=== PATIENT | female | born 2005 | race African-American/Black ===

== ENCOUNTER 2023-06-07 08:16 | Emergency (ER) | payer BC ==
[2023-06-07] MEDS ORDERED: Ondansetron 4 MG/2 ML SDV IVPUSH ONE (08:35)
[2023-06-07] MEDS ORDERED: Sodium Chloride 0.9% 1,000 ML IV SCH (08:45)
[2023-06-07] MEDS ORDERED: Ketorolac 30 MG/ML SDV IVPUSH ONE (08:59)
[2023-06-07] MEDS ORDERED: Prochlorperazine 10 MG/2 ML SDV IVPUSH ONE (09:47)
[2023-06-07] MEDS ORDERED: diphenhydrAMINE 50 MG/ML SDV IVPUSH ONE (09:47)
[2023-06-07] MEDS ORDERED: Sodium Chloride 0.9% 1,000 ML IV ONE (10:00)
== END 2023-06-07 12:00 | disposition home or self-care (01) ==
LOC: FB.ED 08:16
DX: A05.9 Bacterial foodborne intoxication, unspecified (principal); K52.9 Noninfective gastroenteritis and colitis, unspecified; Z88.1 Allergy status to other antibiotic agents; Z88.0 Allergy status to penicillin
CPT/HCPCS: 96361; 96374; 96375; 99283-25; J0780; J1200; J1885; J2405; J7030